=== PATIENT | male | born 1975 | race Caucasian/White ===

== ENCOUNTER 2018-03-28 13:04 | Inpatient (IN) | payer OTHER ==
[~2018-03-28] VITALS: Ht 170.2 cm; Wt 68.0 kg
--- NOTE | 2018-03-28 13:09 | NUR ---
PT A/OX4, PRESENTS TO THE ER C/O ABD PAIN THAT STARTED 2 DAYS AGO, PROVOKED BY MOVEMENT, SHARP IN QUALITY, RADIATES FROM LLQ TOWARDS THE GRION, 09/19, CONSTANT. PT REPORTS ABD TENDERNESS, BUT NO DISTENSION. LAST BM WAS THIS MORNING W/ NO DIFFICULTY. VS WNL. NO RESPIRATORY DISTRESS NOTED. PT DENIES C/P, SOB, N/V/D, DIZZINESS, HEADACHE.
--- NOTE | 2018-03-28 13:23 | NUR ---
DRE CALERO AT BEDSIDE FOR MSE.
[2018-03-28] MEDS ORDERED: IV NORMAL SALINE 1000 ML BAG IV ONE ×2 (13:30→14:30)
[2018-03-28] MEDS ORDERED: KETOROLAC TROMETHAMINE 15 MG INJ IV ONE (13:30)
[2018-03-28] MEDS ORDERED: METOCLOPRAMIDE HCL 10 MG/2 ML VIAL IV ONE (13:30)
--- NOTE | 2018-03-28 13:44 | NUR ---
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
[2018-03-28] MEDS ORDERED: KETOROLAC TROMETHAMINE 15 MG INJ ONE (13:47)
[2018-03-28] MEDS ORDERED: METOCLOPRAMIDE HCL 10 MG/2 ML VIAL ONE (13:47)
[2018-03-28 13:58] LABS: BASOPHILS % (AUTO) 0.4 % (0.0-2.0); HEMATOCRIT 39.6 % (36.7-47.1); HEMOGLOBIN 14.1 g/dL (12.5-16.3); LYMPHOCYTES # (AUTO) 1.7 K/uL (20.0-40.0); LYMPHOCYTES % (AUTO) 28.7 % (20.5-51.5); MEAN CORPUSCULAR HEMOGLOBIN 31.7 uug (23.8-33.4); MEAN CORPUSCULAR HGB CONC 36 g/dL (32.5-36.3); MEAN CORPUSCULAR VOLUME 88.7 fL (73.0-96.2); MONOCYTES # (AUTO) 0.9 K/uL (2.0-10.0); MONOCYTES % (AUTO) 14.8 % (0.0-11.0); NEUTROPHILS # (AUTO) 3.3 K/uL (1.8-8.9); NEUTROPHILS % (AUTO) 56.1 % (38.5-71.5); PLATELET COUNT (AUTO) 169 K/uL (152-348); RED BLOOD CELL COUNT(AUTO) 4.46 MIL/uL (4.06-5.63); WHITE BLOOD COUNT (AUTO) 5.9 K/uL (3.6-10.2)
--- NOTE | 2018-03-28 14:00 | NUR ---
PT TAKEN TO RADIOLOGY FOR CT SCAN.
[2018-03-28 14:04] LABS: CREATININE 1.1 mg/dL (0.6-1.3); POTASSIUM 3.3 mmol/L (3.5-5.1)
[2018-03-28 14:04] LABS: *BILIRUBIN,URIN NEGATIVE (NEGATIVE); *BLOOD, URINE 1+ (NEGATIVE); *CLARITY,URINE CLEAR (CLEAR); *COLOR,URINE YELLOW (YELLOW); *KETONES,URINE 1+ (NEGATIVE); *UROBILINOGEN,URINE 0.2 E.U./dl (NORMAL); LEUKOCYTE ESTERASE ,URINE TRACE (NEGATIVE); NITRITE, URINE NEGATIVE (NEGATIVE); PH,URINE 5.5 (5.0-8.0); UGLUCOSE NEGATIVE (NEGATIVE)
[2018-03-28 14:07] LABS: BACTERIA,URINE FEW /HPF (NONE SEEN); RBC,URINE 0-3 /HPF (0-3); SQUAMOUS EPITHELIAL CELL,UR FEW /HPF (NONE SEEN)
[2018-03-28 14:10] LABS: BILIRUBIN,DIRECT 0.1 mg/dL (0.0-0.2); BILIRUBIN,TOTAL 0.3 mg/dL (0.2-1.0); TOTAL PROTEIN, SERUM 7.1 g/dL (6.4-8.2)
--- NOTE | 2018-03-28 14:23 | NUR ---
DRE CALERO AT BEDSIDE FOR PT UPDATE.
--- NOTE | 2018-03-28 14:28 | NUR ---
CALLED [facility] FOR PANEL CALL - AWAITING CALLBACK. ATTEMPT 1.
[2018-03-28] MEDS ORDERED: LEVOFLOXACIN 750 MG/D5W 150 ML PIGGYBACK IV ONE (14:30)
[2018-03-28] MEDS ORDERED: METRONIDAZOLE 500 MG/NS 100 ML PIGGYBACK IV ONE (14:30)
[2018-03-28] MEDS ORDERED: METRONIDAZOLE 500 MG/NS 100ML 100 ML IV ONE (14:33)
[2018-03-28] MEDS ORDERED: LEVOFLOXACIN 750MG/D5W 150 ML IV ONE (14:33)
--- NOTE | 2018-03-28 15:15 | NUR ---
ADMITTING REPORT GIVEN TO JUSTEN DIAMOND.
[2018-03-28] MEDS ORDERED: TEMAZEPAM 15 MG CAPSULE PO PRN (15:30)
[2018-03-28] MEDS ORDERED: MAGNESIUM HYDROXIDE 30 ML LIQUID UDC PO PRN (15:30)
[2018-03-28] MEDS ORDERED: MORPHINE SULFATE 2 MG/1 ML DISP.SYRIN IV PRN (15:30)
[2018-03-28] MEDS ORDERED: Z GUARD REMEDY PASTE 57 GM TUBE TOP PRN (15:30)
[2018-03-28 15:45] VITALS: BP 99/58
--- NOTE | 2018-03-28 15:45 | NUR ---
Pt. admitted to [facility], under care of NIVIA PETERSEN NP. Belongs List completed
--- NOTE | 2018-03-28 16:00 | NUR ---
RECIEVED PATIENT FROM ER AWAKE ALERT COOPERATE WELL NO SOB VS TAKEN STABLE C/O MID LOWER ABD PAIN NO N/V CONTINUE IVF AND ANTIBIOTICS FROM ER ON RAC#20 CALL SYSTEM INSTRUCTION AND KEEP CALL LIGHT WITHIN REACH FAMILY MOTHER AT BEDSIDE KEEP NPO FOR NOW
--- NOTE | 2018-03-28 16:25 | NUR ---
C/O OF ABD PAIN MORPHINE 2MG GIVEN ORDER
[2018-03-28] MEDS: MORPHINE SULFATE 4 MG/1 ML DISP.SYRIN IV PRN ×2 (16:27→20:30)
[2018-03-28] MEDS: IV NS 1000 ML 1,000 ML IV PRN (17:36)
[2018-03-28] MEDS: ONDANSETRON 4 MG/2 ML VIAL IV PRN (17:43)
--- NOTE | 2018-03-28 17:43 | NUR ---
REFUSED TO EAT DINNER C/O OF NAUSEA ZOFRAN IVP GIVEN
--- NOTE | 2018-03-28 18:00 | NUR ---
STABLE CONDITION NAUSEA SUBSIDE BUT STATE PAIN MEDICATION DOES NOT HELP MUCH ,WILL GIVE ANOTHER MEDICATION ORDER LATER
--- NOTE | 2018-03-28 18:20 | NUR ---
RESTING QUIET ,CONTINUE IVF AND ANTIBIOTICS ORDER SAFETY MEASURE PROVIDED CALL LIGHT IN REACH AND REMIND TO CALL WHEN NEEDED
[2018-03-28] MEDS: KETOROLAC TROMETHAMINE 15 MG INJ IVP PRN (18:57)
[2018-03-28 19:23] VITALS: BP 106/54
[2018-03-28] MEDS: DOCUSATE SODIUM 100 MG CAPSULE PO SCH (20:30)
[2018-03-28] MEDS ORDERED: METRONIDAZOLE 500 MG/NS 100ML 200 ML IV ONE (21:45)
[2018-03-28] MEDS: METRONIDAZOLE 500 MG/NS 100ML 500 MG in PREMIXED 1 EACH IV SCH (22:21)
[2018-03-29] MEDS: MORPHINE SULFATE 4 MG/1 ML DISP.SYRIN IV PRN ×3 (01:44→18:28)
[2018-03-29 03:49] VITALS: BP 108/63
[2018-03-29] MEDS: ONDANSETRON 4 MG/2 ML VIAL IV PRN ×2 (04:11→20:18)
[2018-03-29] MEDS: ACETAMINOPHEN 325 MG TABLET PO PRN ×2 (04:11→12:05)
[2018-03-29] MEDS: IV NS 1000 ML 1,000 ML IV PRN (04:12)
[2018-03-29] MEDS: METRONIDAZOLE 500 MG/NS 100ML 500 MG in PREMIXED 1 EACH IV SCH ×3 (05:15→21:58)
[2018-03-29] MEDS: KETOROLAC TROMETHAMINE 15 MG INJ IVP PRN ×3 (05:17→21:51)
[2018-03-29 06:30] LABS: BASOPHILS % (AUTO) 0.4 % (0.0-2.0); EOSINOPHILS % (AUTO) 0.1 % (0.0-7.0); HEMATOCRIT 34.4 % (36.7-47.1); HEMOGLOBIN 12.2 g/dL (12.5-16.3); LYMPHOCYTES # (AUTO) 2.3 K/uL (20.0-40.0); LYMPHOCYTES % (AUTO) 43.6 % (20.5-51.5); MEAN CORPUSCULAR HEMOGLOBIN 31.4 uug (23.8-33.4); MEAN CORPUSCULAR HGB CONC 36 g/dL (32.5-36.3); MEAN CORPUSCULAR VOLUME 88.4 fL (73.0-96.2); MONOCYTES # (AUTO) 0.7 K/uL (2.0-10.0); MONOCYTES % (AUTO) 12.9 % (0.0-11.0); NEUTROPHILS # (AUTO) 2.3 K/uL (1.8-8.9); PLATELET COUNT (AUTO) 148 K/uL (152-348); RED BLOOD CELL COUNT(AUTO) 3.89 MIL/uL (4.06-5.63); WHITE BLOOD COUNT (AUTO) 5.4 K/uL (3.6-10.2)
[2018-03-29 06:50] LABS: BILIRUBIN,TOTAL 0.3 mg/dL (0.2-1.0); CREATININE 0.9 mg/dL (0.6-1.3); MAGNESIUM 1.7 mg/dL (1.8-2.4); PHOSPHOROUS 2.6 mg/dL (2.5-4.9); POTASSIUM 3.9 mmol/L (3.5-5.1); TOTAL PROTEIN, SERUM 5.9 g/dL (6.4-8.2)
[2018-03-29] MEDS: PANTOPRAZOLE SODIUM 40 MG VIAL IV SCH (09:21)
[2018-03-29] MEDS ORDERED: MAGNESIUM SULFATE 1 GM in IV DEXTROSE 5% 50 ML IV ONE (11:00)
[2018-03-29 11:39] VITALS: BP 103/56
[2018-03-29] MEDS ORDERED: MAGNESIUM SULFATE/D5W 100 ML IV SCH (11:45)
[2018-03-29] MEDS ORDERED: SUMATRIPTAN SUCCINATE 50 MG TABLET PO ONE (14:15)
[2018-03-29] MEDS ORDERED: LEVOFLOXACIN 750MG/D5W 750 MG in PREMIXED 1 EACH IV SCH (15:00)
[2018-03-29 15:14] VITALS: BP 109/62
--- NOTE | 2018-03-29 18:45 | NUR ---
PT HAS A BURNING SENSATION WITH LEVAQUIN. ICE PACK PROVIDED AND IV SLOWED DOWN. PT IS NOW TOLERATING ABX. PT PAIN IS CONTROLLED WITH MORPHINE AND TORADOL. PT DENIES N/V AND HAS NO SIGNS OF RESPIRATORY DISTRESS. CONTINUE TO MONITOR PT.
[2018-03-29 20:21] VITALS: BP 104/71
[2018-03-29] MEDS: DOCUSATE SODIUM 100 MG CAPSULE PO SCH (21:44)
--- NOTE | 2018-03-29 23:18 | NUR ---
PRN Restoril given for sleeplessness per patient request. Will continue to observe.
[2018-03-30] MEDS: IV NS 1000 ML 1,000 ML IV PRN (02:51)
[2018-03-30 04:10] VITALS: BP 90/51
[2018-03-30] MEDS: METRONIDAZOLE 500 MG/NS 100ML 500 MG in PREMIXED 1 EACH IV SCH (06:15)
[2018-03-30 06:49] LABS: BASOPHILS % (AUTO) 0.4 % (0.0-2.0); CREATININE 0.8 mg/dL (0.6-1.3); EOSINOPHILS % (AUTO) 0.3 % (0.0-7.0); HEMATOCRIT 35.2 % (36.7-47.1); HEMOGLOBIN 12.5 g/dL (12.5-16.3); LYMPHOCYTES # (AUTO) 2.6 K/uL (20.0-40.0); LYMPHOCYTES % (AUTO) 47.5 % (20.5-51.5); MEAN CORPUSCULAR HEMOGLOBIN 31.9 uug (23.8-33.4); MEAN CORPUSCULAR HGB CONC 36 g/dL (32.5-36.3); MEAN CORPUSCULAR VOLUME 89.9 fL (73.0-96.2); MONOCYTES # (AUTO) 0.6 K/uL (2.0-10.0); MONOCYTES % (AUTO) 10.9 % (0.0-11.0); NEUTROPHILS # (AUTO) 2.2 K/uL (1.8-8.9); NEUTROPHILS % (AUTO) 40.9 % (38.5-71.5); PLATELET COUNT (AUTO) 142 K/uL (152-348); POTASSIUM 4.3 mmol/L (3.5-5.1); RED BLOOD CELL COUNT(AUTO) 3.91 MIL/uL (4.06-5.63); WHITE BLOOD COUNT (AUTO) 5.4 K/uL (3.6-10.2)
[2018-03-30] MEDS: PANTOPRAZOLE SODIUM 40 MG VIAL IV SCH (08:56)
[2018-03-30] MEDS: KETOROLAC TROMETHAMINE 15 MG INJ IVP PRN (09:06)
[2018-03-30] MEDS ORDERED: ONDA4SOL2 PO (11:23)
[2018-03-30] MEDS ORDERED: LEVO750T21 PO (11:23)
[2018-03-30] MEDS ORDERED: PANT40TA2 PO (11:23)
[2018-03-30] MEDS ORDERED: METR500T PO (11:23)
[2018-03-30] MEDS ORDERED: ACET-2154 PO (11:23)
[2018-03-30 11:28] VITALS: BP 103/55
--- NOTE | 2018-03-30 13:15 | NUR ---
NURSE NOTES: Patient was discharged home as ordered in stable condition. No SOB or distress. IV line was removed with intact lumen. All due medications were given, tolerated well. Assessed and reassessed for pain, medicated with Toradol x 1, stated relief. CT scan was done without contrast as ordered. Prescribed medications for home were discussed by Josue (Pharmacist) to the patient, pt was able to verbalized understanding using teach back method. Also patient's diet for diverticulitis was discussed to him by RD and provided the material for his diet, patient was able to verbalized understanding as well. Discharged instructions were provided to the patient by RN assigned, instructed the need for follow up appointment with Dr. Mitesh Gonzalez (GI) and PCP in 1 week. Patient stated understanding. Also patient refused pictures to be taken on his buttocks and heels since he does not have any wounds, explained carefully to the patient the rationale fo the pictures but still patient adamantly refused. All belongings were complete. No Missing items noted. Patient was accompanied to exit. left the nit with no SOB or distress.
== END 2018-03-30 13:15 | disposition home or self-care (01) | DRG 244 ==
LOC: ER 13:04 → MED 15:17
PROVIDERS: ADMIT Nurse Practitioner Acute Care; ATTEND Nurse Practitioner Acute Care
DX: K57.20 Diverticulitis of large intestine with perforation and abscess without bleeding (principal); E83.42 Hypomagnesemia; K80.20 Calculus of gallbladder without cholecystitis without obstruction; N20.0 Calculus of kidney; N40.0 Benign prostatic hyperplasia without lower urinary tract symptoms; E83.51 Hypocalcemia; E87.6 Hypokalemia; Z87.891 Personal history of nicotine dependence; E88.09 Other disorders of plasma-protein metabolism, not elsewhere classified; R73.9 Hyperglycemia, unspecified; M51.37 Other intervertebral disc degeneration, lumbosacral region
CPT/HCPCS: 36415; 70030-TC; 71045; 83605; 83690; 83735; 84100; 85025; 85730; 87040; 87086; 93005; A4663; C9113; G0378; J1885; J1956; J2270; J2405; J2765; J3475; J3490; J7030